=== PATIENT | male | born 1945 | race Hispanic/Latino ===

== ENCOUNTER 2018-07-22 07:58 | Day surgery (SDC) | payer MEDICARE, OTHER ==
[2018-07-22] MEDS ORDERED: NACL 0.9% 1000 ML 1,000 ML ONE (08:27)
[2018-07-22 08:34] VITALS: BP 137/71
[2018-07-22] MEDS ORDERED: NACL 0.9% 1000 ML 1,000 ML IV SCH (09:00)
--- NOTE | 2018-07-22 15:35 | Cat Scan Report ---
FINAL REPORT PROCEDURE: CT ANGIO ABDOMEN PELVIS TECHNIQUE: Computerized axial tomographic angiography of the abdomen and pelvis was performed after the IV injection of iodinated nonionic contrast. The image data was postprocessed using 2-dimensional multiplanar reformatted (MPR) and 3-dimensional (MIP and/or volume rendered) techniques. HISTORY: lower extremity hypertension COMPARISON: No prior studies are available for comparison. FINDINGS: There is mild calcified plaquing visualized in the abdominal aorta and iliac arteries. There is only minimal narrowing of the vessels. There is no high-grade stenosis dissection or aneurysm. There is ca lcified plaquing seen at the origin of the celiac trunk narrowing the vessel approximately 20 percent . There is calcified and noncalcified plaque at the origin of the superior mesenteric artery narrowin g the vessel approximately 80 percent. The right renal artery appears widely patent. There is calcifi ed and noncalcified plaque at the origin of the left renal artery narrowing the vessel approximately 30-40 percent. The left common and external iliac artery are tortuous otherwise appear patent. There is mild calcified plaquing without high-grade stenosis. Mild calcified plaquing also visualized in th e right common iliac artery. No high-grade stenosis is visualized. There is an inferior vena cava hannah ter present. There also appears to be stents within the inferior aspect of the inferior vena cava ext ending into the right and left iliac veins to the level of the common femoral veins. On the initial i mages and delayed images I do not see contrast within these stents. These may be occluded. The inferior mesenteric artery is patent. There is a small amount of dependent atelectasis in the lung bases. There is an 8 millimeter noncalci fied nodule in the right lower lobe. There is small amount of a parenchymal scarring visualized in th e left lung base laterally. There are 2 low-density nodules in the left lobe of the liver superiorly anteriorly which appear to r epresent hepatic cyst. The liver is otherwise unremarkable. There is contrast refluxing into the infe rior vena cava and intrahepatic veins which can be seen with congestive failure, right heart strain a nd tricuspid insufficiency. Gallbladder is surgically absent. There is a moderate size hiatal hernia. The adrenal glands and the pancreas are unremarkable. The spleen is not enlarged. Bowel loops are unremarkable. No evidence of b owel obstruction ascites or free intraperitoneal gas. The appendix is not visualized. No inflammatory changes are seen that would suggest appendicitis. Kidneys ureters and urinary bladder are unremarkable. Prostate gland does not appear to be significan tly enlarged. No acute bony abnormalities are seen IMPRESSION: A stent is visualized in the inferior vena cava extending into the iliac veins bilaterally. I cannot confirm patency. Consider ultrasound for further evaluation. Inferior vena cava filter also in place. High-grade stenosis superior mesenteric artery. Minimal stenosis celiac trunk. Mild stenosis left matt al artery as described. Mild disease visualized iliac arteries bilaterally. Hepatic cysts are suspected. Nonspecific 8 millimeter noncalcified nodule right lower lobe. Consider CT of the chest to evaluate f or other pulmonary masses.
== END 2018-07-22 14:00 | disposition home or self-care (01) ==
LOC: CATHLABREC 07:58
PROVIDERS: ATTEND Surgery Vascular Surgery
DX: I87.323 Chronic venous hypertension (idiopathic) with inflammation of bilateral lower extremity (principal); I70.213 Atherosclerosis of native arteries of extremities with intermittent claudication, bilateral legs; I87.1 Compression of vein; R91.8 Other nonspecific abnormal finding of lung field; I70.1 Atherosclerosis of renal artery; I11.0 Hypertensive heart disease with heart failure; I50.9 Heart failure, unspecified; I20.8 Other forms of angina pectoris; G43.909 Migraine, unspecified, not intractable, without status migrainosus; M17.0 Bilateral primary osteoarthritis of knee; Z98.890 Other specified postprocedural states; Z87.891 Personal history of nicotine dependence; Z79.82 Long term (current) use of aspirin; Z79.899 Other long term (current) drug therapy; Z95.1 Presence of aortocoronary bypass graft; Z90.49 Acquired absence of other specified parts of digestive tract; Z82.49 Family history of ischemic heart disease and other diseases of the circulatory system; Z86.73 Personal history of transient ischemic attack (TIA), and cerebral infarction without residual deficits
CPT/HCPCS: 74174; 96360; 96361; J7030; Q9967

== ENCOUNTER 2018-08-17 06:01 | Day surgery (SDC) | payer MEDICARE, OTHER ==
[2018-08-17] MEDS ORDERED: NACL 0.9% 500 ML 500 ML IV SCH (07:00)
[2018-08-17 07:14] LABS: INR 1.2 (0.87-1.13)
[2018-08-17 07:15] LABS: Partial Thromboplastin Time 29.2 Sec. (24.2-36.6)
[2018-08-17 07:16] LABS: Basophils # (Auto) 0.1 K/mm3 (0.0-0.1); Eosinophils % (Auto) 9.9 % (0.0-4.3); Hematocrit 45.5 % (35.5-45.6); Hemoglobin 15.8 gm/dl (11.8-15.2); Lymphocytes % (Auto) 32.3 % (13.4-35.0); Mean Corpuscular HGB Conc 35 % (32-34); Mean Corpuscular Volume 97 fl (84-94); Monocytes # (Auto) 0.6 K/mm3 (0.0-0.8); Platelet Count 181 K/mm3 (140-440); Red Cell Distribution Width 14.3 % (13.2-15.2)
[2018-08-17 07:36] LABS: BUN/Creatinine Ratio 13; Blood Urea Nitrogen 14 mg/dL (9-20); Hemolysis Index 32
[2018-08-17] MEDS ORDERED: NACL 0.9% 500 ML 0 ML ONE (08:18)
[2018-08-17] MEDS ORDERED: HEPARIN/NS 5000 UNIT/500ML(CATH LAB) 1,000 ML IR ONE (08:18)
[2018-08-17] MEDS ORDERED: TORADOL ONE (08:18)
[2018-08-17] MEDS ORDERED: ANCEF/STERILE WATER 2 GM/20 ML 2 GM/20 ML SYRINGE IV ONE (08:18)
[2018-08-17] MEDS: XYLOCAINE 2% INFILTRATI ONE ×2 (08:51→09:03)
[2018-08-17] MEDS: VERSED ONE ×3 (09:00→09:25)
[2018-08-17] MEDS: SUBLIMAZE ONE ×3 (09:00→09:36)
[2018-08-17] MEDS ORDERED: HEPARIN 10,000 UNITS/10 ML ONE (09:24)
[2018-08-17] MEDS ORDERED: VERSED ONE (09:39)
[2018-08-17] MEDS ORDERED: SUBLIMAZE ONE (09:40)
--- NOTE | 2018-08-17 10:44 | Post Operative Note ---
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 Unable to cross into the vena cava possibly due to previously placed inferior vena cava filter. Left common femoral vein thrombosed, left external iliac and common iliac veins also thrombosed with an old stent in place. Large pelvic collateral veins patent including bilateral internal pudental veins. No obvious reconstruction of the vena cava below the renals. Successfully expanded the right common femoral vein below the stent and reduced in-stent thrombus with venoplasty. From the patient's pain may require more compression continued exercise or consideration for abdominal venous bypass / reconstruction. 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 Post-operative diagnosis: Same Procedure name(s): #1 percutaneous balloon venoplasty right common and external iliac veins, right common femoral vein #2 bilateral lower extremity venography with inferior vena cavogram #3 insertion of a catheter inferior vena cava via right greater saphenous approach #4 insertion of a catheter left external iliac vein via left greater saphenous approach #5 duplex guided cannulation bilateral venous access Surgeon: Lyndon Max MD Sports Athletic Trainer: None Anesthesia: Moderate sedation: Starting time 0 900 and time 1005 total moderate sedation time 65 minutes EBL: Minimal Specimen(s): None Complications: None Findings: 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 and with significant thrombotic and fibrotic scarring of the left common femoral and left femoral vein, scarring of the right common femoral and external iliac vein, significant pelvic collateral formation Procedure: Patient is supine position with both legs slightly abducted both groins and proximal thighs were prepped and draped using standard sterile technique access was initially attempted using duplex guidance and micropuncture technique to anesthetize skin and the upper thigh but despite he patent femoral vein on the right and duplex confirmation of intravenous placement of the needle tip was unable to advance the wire through old scar tissue in the vein. I then moved up a little higher and identified a dilated proximal greater saphenous vein and then using micropuncture technique cannulated at vessel successfully advanced a wire into the venous stent. Micro-sheath was advanced and I performed venography through that sheath which confirmed in-stent restenosis and what appeared to be proximal occlusion of the stent in the vena cava. The patient was then heparinized and a guidewire was passed and upsized to a 5 Latvian introducer and repeated venography which then showed the above-mentioned findings along with extensive cross pelvic collateralization. I was able to manipulate the wire all the way to the apex of the stent but could not go past this into the vena cava. Different guidewires with different stiffness characteristics and guide catheters multiple attempts were made to pass the wire beyond the stent but they all proved unsuccessful. Venography of the iliac system was performed and delayed films were utilized to observe contrast in the suprarenal cava but not the infrarenal cava. I Upsized to an 8 Latvian Introducer on the Right and Then Proceeded to Cannulate on the Left Side. This proved exceedingly difficult due to scar tissue. Ultimately I was able to cannulate a greater saphenous vein pass a wire into the distal external iliac. Contrast injections showed the common femoral vein to be occluded as well as the external iliac within the stent. Multiple attempts at passing a wire more proximally were unsuccessful. This point I then placed a 14 balloon in the right iliac system and advanced it as far proximally as I could an attempt to open the tapered end of the stent in an effort to gain access to the vena cava. While I was able to stretch the stent and remove any residual thrombus I was unable to pass a wire into the vena cava and actually had a small amount of extravasation of contrast. Despite this there was better flow through the pelvic circulation based on the angioplasty of the lower end of the stent on the right. This point I felt that further attempts at opening the vena cava and the stents would be unproductive at least from the inferior approach. I then removed all wires and catheters and held Pressure for hemostasis. Was admitted to the recovery room in stable condition having tolerated the procedure well.
--- NOTE | 2018-08-17 10:58 | Operative Report ---
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 Post-operative diagnosis: Same Procedure name(s): #1 percutaneous balloon venoplasty right common and external iliac veins, right common femoral vein #2 bilateral lower extremity venography with inferior vena cavogram #3 insertion of a catheter inferior vena cava via right greater saphenous approach #4 insertion of a catheter left external iliac vein via left greater saphenous approach #5 duplex guided cannulation bilateral venous access Surgeon: Lyndon Max MD Clinical Training Specialist: None Anesthesia: Moderate sedation: Starting time 0 900 and time 1005 total moderate sedation time 65 minutes EBL: Minimal Specimen(s): None Complications: None Findings: 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 and with significant thrombotic and fibrotic scarring of the left common femoral and left femoral vein, scarring of the right common femoral and external iliac vein, significant pelvic collateral formation Procedure: [Procedure: Patient is supine position with both legs slightly abducted both groins and proximal thighs were prepped and draped using standard sterile technique access was initially attempted using duplex guidance and micropuncture technique to anesthetize skin and the upper thigh but despite he patent femoral vein on the right and duplex confirmation of intravenous placement of the needle tip was unable to advance the wire through old scar tissue in the vein. I then moved up a little higher and identified a dilated proximal greater saphenous vein and then using micropuncture technique cannulated at vessel successfully advanced a wire into the venous stent. Micro- sheath was advanced and I performed venography through that sheath which confi rmed in-stent restenosis and what appeared to be proximal occlusion of the stent in the vena cava. The patient was then heparinized and a guidewire was passed and upsized to a 5 Brazilian introducer and repeated venography which then showed the above-mentioned findings along with extensive cross pelvic collateralization. I was able to manipulate the wire all the way to the apex of the stent but could not go past this into the vena cava. Different guidewires with different stiffness characteristics and guide catheters multiple attempts were made to pass the wire beyond the stent but they all proved unsuccessful. Venography of the iliac system was performed and delayed films were utilized to observe contrast in the suprarenal cava but not the infrarenal cava. I Upsized to an 8 Brazilian Introducer on the Right and Then Proceeded to Cannulate on the Left Side. This proved exceedingly difficult due to scar tissue. Ultimately I was able to cannulate a greater saphenous vein pass a wire into the distal external iliac. Contrast injections showed the common femoral vein to be occluded as well as the external iliac within the stent. Multiple attempts at passing a wire more proximally were unsuccessful. This point I then placed a 14 balloon in the right iliac system and advanced it as far proximally as I could an attempt to open the tapered end of the stent in an effort to gain access to the vena cava. While I was able to stretch the stent and remove any residual thrombus I was unable to pass a wire into the vena cava and actually had a small amount of extravasation of contrast. Despite this there was better flow through the pelvic circulation based on the angioplasty of the lower end of the stent on the right. This point I felt that further attempts at opening the vena cava and the stents would be unproductive at least from the inferior approach. I then removed all wires and catheters and held Pressure for hemostasis. Was admitted to the recovery room in stable condition having tolerated the procedure well.]
--- NOTE | 2018-08-17 11:04 | Short Stay Summary ---
Short Stay Documentation Date of service: 08/17/18 Narrative H&P: Admitted to the Travel Administrator for outpatient diagnostic and possible therapeutic procedure involving occluded pelvic veins with previous stents - History H&P: obtained from office - Allergies and Medications Current Medications: Allergies No Known Allergies Allergy (Verified 09/13/13 06:25) Home Medications Medication Instructions Recorded Confirmed Last Taken Type Aspirin [Aspirin BABY CHEW TAB] 81 mg PO DAILY 09/13/13 08/17/18 08/16/18 History Metoprolol [Lopressor TAB] 25 mg PO QAM 09/13/13 08/17/18 08/17/18 05:00 History Apixaban [Eliquis] 5 mg PO BID 07/22/18 08/17/18 08/17/18 05:00 History Furosemide [Lasix] 20 mg PO QDAY 07/22/18 08/17/18 08/16/18 History Metoprolol [Lopressor TAB] 50 mg PO QPM 07/22/18 08/17/18 08/16/18 History Omeprazole 40 mg PO QDAY 07/22/18 08/17/18 08/16/18 History Active Medications Sodium Chloride (Nacl 0.9% 500 Ml) 500 mls @ 50 mls/hr IV DIRECT ERNESTO Last Admin: 08/17/18 07:00 Dose: 50 mls/hr Documented by: - Brief post op/procedure progress note Date of procedure: 08/17/18 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 Post-operative diagnosis: Same Procedure name(s): #1 percutaneous balloon venoplasty right common and external iliac veins, right common femoral vein #2 bilateral lower extremity venography with inferior vena cavogram #3 insertion of a catheter inferior vena cava via right greater saphenous approach #4 insertion of a catheter left external iliac vein via left greater saphenous approach #5 duplex guided cannulation bilateral venous access Surgeon: Lyndon Max MD Disposal Operator: None Anesthesia: Moderate sedation: Starting time 0 900 and time 1005 total moderate sedation time 65 minutes EBL: Minimal Specimen(s): None Complications: None Findings: 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 and with significant thrombotic and fibrotic scarring of the left common femoral and left femoral vein, scarring of the right common femoral and external iliac vein, significant pelvic collateral formation Procedure: Procedure: Patient is supine position with both legs slightly abducted both groins and proximal thighs were prepped and draped using standard sterile technique access was initially attempted using duplex guidance and micropuncture technique to anesthetize skin and the upper thigh but despite he patent femoral vein on the right and duplex confirmation of intravenous placement of the needle tip was unable to advance the wire through old scar tissue in the vein. I then moved up a little higher and identified a dilated proximal greater saphenous vein and then using micropuncture technique cannulated at vessel successfully advanced a wire into the venous stent. Micro- sheath was advanced and I performed venography through that sheath which confirmed in-stent restenosis and what appeared to be proximal occlusion of the stent in the vena cava. The patient was then heparinized and a guidewire was passed and upsized to a 5 Serbian introducer and repeated venography which then showed the above-mentioned findings along with extensive cross pelvic collateralization. I was able to manipulate the wire all the way to the apex of the stent but could not go past this into the vena cava. Different guidewires with different stiffness characteristics and guide catheters multiple attempts were made to pass the wire beyond the stent but they all proved unsuccessful. Venography of the iliac system was performed and delayed films were utilized to observe contrast in the suprarenal cava but not the infrarenal cava. I Upsized to an 8 Serbian Introducer on the Right and Then Proceeded to Cannulate on the Left Side. This proved exceedingly difficult due to scar tissue. Ultimately I was able to cannulate a greater saphenous vein pass a wire into the distal external iliac. Contrast injections showed the common femoral vein to be occluded as well as the external iliac within the stent. Multiple attempts at passing a wire more proximally were unsuccessful. This point I then placed a 14 balloon in the right iliac system and advanced it as far proximally as I could an attempt to open the tapered end of the stent in an effort to gain access to the vena cava. While I was able to stretch the stent and remove any residual t hrombus I was unable to pass a wire into the vena cava and actually had a small amount of extravasation of contrast. Despite this there was better flow through the pelvic circulation based on the angioplasty of the lower end of the stent on the right. This point I felt that further attempts at opening the vena cava and the stents would be unproductive at least from the inferior approach. I then removed all wires and catheters and held Pressure for hemostasis. Was admitted to the recovery room in stable condition having tolerated the procedure well. 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
[2018-08-17 11:40] VITALS: BP 120/59
== END 2018-08-17 12:30 | disposition home or self-care (01) ==
LOC: CATHLABREC 06:01
PROVIDERS: ATTEND Surgery Vascular Surgery
DX: I87.1 Compression of vein (principal); T82.856A Stenosis of peripheral vascular stent, initial encounter; G43.909 Migraine, unspecified, not intractable, without status migrainosus; I50.9 Heart failure, unspecified; I25.119 Atherosclerotic heart disease of native coronary artery with unspecified angina pectoris; M17.0 Bilateral primary osteoarthritis of knee; E78.00 Pure hypercholesterolemia, unspecified; K21.9 Gastro-esophageal reflux disease without esophagitis; Z86.718 Personal history of other venous thrombosis and embolism; Z90.49 Acquired absence of other specified parts of digestive tract; Z95.1 Presence of aortocoronary bypass graft; M19.90 Unspecified osteoarthritis, unspecified site; Z79.899 Other long term (current) drug therapy; Z79.82 Long term (current) use of aspirin; Z87.891 Personal history of nicotine dependence; Z86.73 Personal history of transient ischemic attack (TIA), and cerebral infarction without residual deficits; Z82.49 Family history of ischemic heart disease and other diseases of the circulatory system; Z86.2 Personal history of diseases of the blood and blood-forming organs and certain disorders involving the immune mechanism; Y83.8 Other surgical procedures as the cause of abnormal reaction of the patient, or of later complication, without mention of misadventure at the time of the procedure; Y92.89 Other specified places as the place of occurrence of the external cause
CPT/HCPCS: 36415; 37248; 75820; 80048; 85025; 85610; 85730; 99156; 99157; C1725; C1751; C1769; C1894; J0690; J1644; J2250; J3010; J7040; J1885; Q9967